=== PATIENT | female | born 1980 | race Caucasian/White ===

== ENCOUNTER 2017-01-28 21:35 | Emergency (ER) | payer MEDICAID ==
[2017-01-28 23:41] VITALS: BP 105/71
== END 2017-01-28 23:41 | disposition home or self-care (01) ==
LOC: ED 21:35
DX: M54.5 Low back pain (principal)
CPT/HCPCS: J1885

== ENCOUNTER 2017-10-22 23:59 | Emergency (ER) | payer MEDICAID ==
[~2017-10-22] VITALS: Ht 157.5 cm; Wt 60.3 kg
[2017-10-23 00:06] VITALS: Ht 157.5 cm; Wt 60.3 kg
[2017-10-23 01:09] VITALS: BP 98/68
== END 2017-10-23 01:09 | disposition home or self-care (01) ==
LOC: ED 23:59
DX: J02.9 Acute pharyngitis, unspecified (principal)
CPT/HCPCS: J1885

== ENCOUNTER 2018-07-21 09:00 | Emergency (ER) | payer MEDICAID ==
[~2018-07-21] VITALS: Ht 157.5 cm; Wt 65.8 kg
[2018-07-21 09:49] LABS: BASOPHIL % 0.6 % (0-2); PLATELET COUNT 224 x10^3mcL (130-400); RED CELL DISTRIBUTION WIDTH 13.5 % (11.5-14.5)
[2018-07-21 09:56] LABS: CALCIUM 8.7 mg/dL (8.5-10.1); CARBON DIOXIDE 26.5 mmol/L (21-32); CHLORIDE SERUM 104 mmol/L (98-107); CREATININE SERUM 0.6 mg/dL (0.6-1.0); GFR1 > 60 mL/min; GLUCOSE SERUM 87 mg/dL (74-106); POTASSIUM SERUM 3.5 mmol/L (3.5-5.1); SODIUM SERUM 139 mmol/L (136-145)
[2018-07-21 10:51] LABS: microscopic required? YES; urine erythrocyte 3+ (NEGATIVE)
[2018-07-21 13:15] VITALS: BP 101/74
== END 2018-07-21 13:15 | disposition home or self-care (01) ==
LOC: ED 09:00
PROVIDERS: Emergency Medicine
DX: O03.4 Incomplete spontaneous abortion without complication (principal); O23.41 Unspecified infection of urinary tract in pregnancy, first trimester; Z3A.12 12 weeks gestation of pregnancy
CPT/HCPCS: J2210